=== PATIENT | male | born 1985 | race Two or more races ===

== ENCOUNTER 2016-12-06 10:09 | Emergency (ER) | payer MEDICAID ==
[~2016-12-06] VITALS: Ht 167.6 cm; Wt 77.1 kg
[2016-12-06 10:21] VITALS: BP 132/80
[2016-12-06] MEDS ORDERED: NKM (10:41)
--- NOTE | 2016-12-06 11:29 | Emergency Room Report ---
History of Present Illness General Chief Complaint: Skin Rash/Abscess Source: Patient Present Illness HPI This patient states that he notes some dry skin patches as on his chest. He states that he has noticed over the past 6 months. He states that lately it has become worse. Denies fever or chills. Denies nausea or vomiting. He has no other symptoms. Allergies: Coded Allergies: No Known Allergies (Unverified , 12/06/16) Patient History Past Medical History: none Past Surgical History: none Reviewed Nursing Documentation: PMH: Agreed, PSxH: Agreed Nursing Documentation-PMH Past Medical History: No Stated History Review of Systems All Other Systems: negative except mentioned in HPI Physical Exam Vital Signs Date Time Temp Pulse Resp B/P Pulse Ox O2 Delivery O2 Flow Rate FiO2 12/06/16 10:21 97.5 68 18 132/80 98 Room Air Sp02 EP Interpretation: reviewed, normal General Appearance: no apparent distress, alert, GCS 15, non-toxic Head: normocephalic, atraumatic Eyes: bilateral eye PERRL, bilateral eye normal inspection ENT: hearing grossly normal, normal pharynx, no angioedema, normal voice Neck: full range of motion, supple/symm/no masses Respiratory: no respiratory distress, no retraction, no accessory muscle use, speaking full sentences Rectal: deferred Musculoskeletal: back normal, gait/station normal, normal range of motion Neurologic: alert, oriented x3, responsive, motor strength/tone normal, sensory intact, speech normal Psychiatric: judgement/insight normal, memory normal, mood/affect normal, no suicidal/homicidal ideation Skin: warm/dry, well hydrated, other - scattered dry patchy rash diffusely on chest and back. Medical Decision Making Diagnostic Impression: Primary Impression: Tinea versicolor Additional Impression: Rash and nonspecific skin eruption ER Course This patient presents with a rash that appears to be consistent with tinea versicolor. It is dry and scaly in the distribution of tinea versicolor. Regardless, this is not an emergency medical condition. There are no red flags on exam that would make me concerned for an underlying systemic illness. The patient was instructed to obtain the Selsun Blue or head and shoulders shampoo and use this with bleeding. 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 Given return precautions and followup instructions. No emergency medical condition is identified. Last Vital Signs Date Time Temp Pulse Resp B/P Pulse Ox O2 Delivery O2 Flow Rate FiO2 12/06/16 10:21 97.5 68 18 132/80 98 Room Air Disposition: HOME, SELF-CARE Condition: Stable Referrals: [facility],REFERRING (PCP) ELE MCDOWELL D.O. Dec 06, 2016 11:29
[2016-12-06 11:45] VITALS: BP 132/80
== END 2016-12-06 11:45 | disposition home or self-care (01) ==
LOC: EMR 10:55
DX: B36.0 Pityriasis versicolor (principal); R21 Rash and other nonspecific skin eruption
CPT/HCPCS: 99282

== ENCOUNTER 2017-09-17 11:10 | Emergency (ER) | payer MEDICAID ==
[~2017-09-17] VITALS: Ht 167.6 cm; Wt 74.8 kg
[~2017-09-17 11:10] MED LIST: NKM
[2017-09-17 11:17] VITALS: BP 112/76
[2017-09-17] MEDS ORDERED: GENTAMICIN SUL3.5 GM OP (11:33)
[2017-09-17] MEDS ORDERED: IBUPROFEN600 MG ORAL (11:33)
[2017-09-17] MEDS ORDERED: AUGMENTIN 875-1 EAC1 ORAL (11:33)
[2017-09-17 11:42] VITALS: BP 118/71
--- NOTE | 2017-09-17 13:18 | Emergency Room Report ---
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 Does not recall any obvious foreign body Denies any trauma The area has slowly become worse increased discharge specifically in the morning time Does not feel that there is any change in his vision Allergies: Coded Allergies: No Known Allergies (Unverified , 12/06/16) Patient History Past Medical History: see triage record Pertinent Family History: none Reviewed Nursing Documentation: PMH: Agreed; PSxH: Agreed Nursing Documentation-PMH Past Medical History: No Stated History Review of Systems All Other Systems: negative except mentioned in HPI Physical Exam Vital Signs Date Time Temp Pulse Resp B/P (MAP) Pulse Ox O2 Delivery O2 Flow Rate FiO2 09/17/17 11:15 98.2 90 20 112/76 99 Room Air 98.2 Sp02 EP Interpretation: reviewed, normal General Appearance: well appearing, no apparent distress Head: normocephalic, atraumatic Eyes: right eye other - Right eye conjunctivitis bilateral eyelids are also mildly edematous there is clear discharge noted, no obvious foreign body after evaluation under both eyelids, ENT: normal pharynx, no angioedema Neck: supple Respiratory: lungs clear Cardiovascular #1: regular rate, rhythm Musculoskeletal: normal inspection Neurologic: alert, oriented x3, responsive Skin: no rash Lymphatic: no adenopathy Medical Decision Making Diagnostic Impression: Primary Impression: conjunctivitis ER Course Patient shows clinical signs of right-sided bacterial conjunctivitis Given the edema to the upper and lower eyelid early cellulitis is also considered Patient placed on oral antibiotics as well as eye drops and requires close follow-up Last Vital Signs Date Time Temp Pulse Resp B/P (MAP) Pulse Ox O2 Delivery O2 Flow Rate FiO2 09/17/17 11:42 98.2 84 18 118/71 99 Room Air 98.2 Status: unchanged Disposition: HOME, SELF-CARE Condition: Stable Scripts Amoxicillin/Potassium Clav 875-125* (AUGMENTIN 875-125 TABLET*) 1 Each Tablet 1 TAB ORAL TWICE A DAY, #14 TAB Prov: Av Hernandez DO 09/17/17 Gentamicin Sulfate* (GENTAMICIN SULFATE*) 3.5 Gm Oint...g. 3.5 GM OP TID for 7 Days, GM Prov: Av Hernandez DO 09/17/17 Ibuprofen* (MOTRIN*) 600 Mg Tablet 600 MG ORAL Q8H PRN for For Pain, #20 TAB 0 Refills Prov: Av Hernandez DO 09/17/17 Referrals: NOT CHOSEN [facility]/MD,REFERRING Patient Instructions: Bacterial Conjunctivitis Additional Instructions: Patient is provided with the discharge instructions notified to follow up with primary doctor in the next 2-3 days otherwise return to the er with any worsening symptoms. Please note that this report is being documented using [employer] technology. This can lead to erroneous entry secondary to incorrect interpretation by the dictating instrument. Av Hernandez DO September 17, 2017 13:18
== END 2017-09-17 11:42 | disposition home or self-care (01) ==
LOC: EMR 11:32
DX: H10.9 Unspecified conjunctivitis (principal)
CPT/HCPCS: 99284

== ENCOUNTER 2017-10-10 16:45 | Emergency (ER) | payer MEDICAID ==
[~2017-10-10] VITALS: Ht 167.6 cm; Wt 72.6 kg
[~2017-10-10 16:45] MED LIST changes: +AUGMENTIN 875-1 EAC1 ORAL; +GENTAMICIN SUL3.5 GM OP; +IBUPROFEN600 MG ORAL
[2017-10-10 17:06] VITALS: BP 123/79
--- NOTE | 2017-10-10 17:29 | Emergency Room Report ---
History of Present Illness General Chief Complaint: Vomiting Source: Patient Present Illness HPI 32-year-old male with no medical problems presents with nausea and vomiting yellowish gastric acid t twice since yesterday, lightheaded and dizzy sensation as well. He reports he can't think of any obvious triggers he reports he has no pain complaints other than a low-grade headache, he denies fevers, denies bowel pain, denies urinary symptoms, denies diarrhea, denies skin rashes, denies recent travel, denies any medication or drug used, and has no other symptoms at all. Allergies: Coded Allergies: No Known Allergies (Unverified , 12/06/16) Patient History Past Medical History: see triage record Reviewed Nursing Documentation: PMH: Agreed; PSxH: Agreed Nursing Documentation-PMH Past Medical History: No Stated History Review of Systems All Other Systems: negative except mentioned in HPI Physical Exam Vital Signs Date Time Temp Pulse Resp B/P (MAP) Pulse Ox O2 Delivery O2 Flow Rate FiO2 10/10/17 16:49 97.8 72 18 123/79 96 Room Air 97.9 Sp02 EP Interpretation: reviewed, normal General Appearance: no apparent distress, alert, non-toxic Head: normocephalic Eyes: bilateral eye normal inspection, bilateral eye PERRL, bilateral eye EOMI ENT: normal ENT inspection, hearing grossly normal, normal pharynx, no angioedema, normal voice, moist mucus membranes Neck: normal inspection, full range of motion, supple, thyroid normal, no meningismus, supple/symm/no masses Respiratory: chest non-tender, lungs clear, normal breath sounds, chest symmetrical, palpation of chest normal Cardiovascular #1: normal peripheral pulses, regular rate, rhythm, no edema, no gallop, no JVD, no murmur, no rub Cardiovascular #2: 2+ radial (R), 2+ radial (L) Gastrointestinal: normal inspection, non tender, soft, no mass, no guarding, no rebound Rectal: deferred Genitourinary: normal inspection, no CVA tenderness Musculoskeletal: back normal, gait/station normal, normal range of motion, non- tender, no calf tenderness Neurologic: normal inspection, alert, oriented x3, responsive, collet gluer III-XII nml as tested, motor strength/tone normal, sensory intact, cerebellar normal, normal gait, speech normal Psychiatric: judgement/insight normal, memory normal, mood/affect normal, no suicidal/homicidal ideation Skin: normal color, no rash, warm/dry, normal turgor Lymphatic: no adenopathy Medical Decision Making Diagnostic Impression: Primary Impression: Vomiting ER Course Patient with nonspecific nausea vomiting lightheadedness, but has a normal examination today. No high risk features, no nystagmus, completely normal examination today as mentioned, possible food poisoning, tolerated a GI cocktail , recommend [id number] measures and reassurance. Labs normal, other than slight cr elvation 1.4. Instructions return for pain severe dizziness persistent vomiting any other symptoms, otherwise f/u with PMD. Last Vital Signs Date Time Temp Pulse Resp B/P (MAP) Pulse Ox O2 Delivery O2 Flow Rate FiO2 10/10/17 17:06 97.9 84 18 123/79 96 Room Air 97.9 Disposition: HOME, SELF-CARE Condition: Stable RAYMON MCKEON M.D Oct 10, 2017 17:29
[2017-10-10] MEDS ORDERED: Mylanta II UD 30ml ORAL ONE (17:30)
[2017-10-10 17:55] LABS: EOSINOPHILS % (AUTO) 1.2 % (0.0-3.0); LYMPHOCYTES % (AUTO) 31.5 % (20.0-45.0); MEAN CORPUSCULAR VOLUME 91 FL (80-99); NEUTROPHILS % (AUTO) 57.3 % (45.0-75.0); PLATELET COUNT 172 K/UL (150-450); RED BLOOD COUNT 4.59 M/UL (4.70-6.10); RED CELL DISTRIBUTION WIDTH 11.2 % (11.6-14.8); WHITE BLOOD COUNT 5.3 K/UL (4.8-10.8)
[2017-10-10 18:08] LABS: ANION GAP 6 mmol/L (5-15); BLOOD UREA NITROGEN 13 mg/dL (7-18); CALCIUM 9.5 MG/DL (8.5-10.1); CARBON DIOXIDE 30 MMOL/L (21-32); CHLORIDE 103 MMOL/L (98-107); CREATININE 1.4 MG/DL (0.55-1.30); POTASSIUM 3.9 MMOL/L (3.5-5.1); SODIUM 139 MMOL/L (136-145)
[2017-10-10 18:11] LABS: ALANINE AMINOTRANSFERASE 32 U/L (12-78); ALBUMIN 4.3 G/DL (3.4-5.0); ALBUMIN/GLOBULIN RATIO 1.1 (1.0-2.7); ALKALINE PHOSPHATASE 63 U/L (46-116); ASPARTATE AMINO TRANSFERASE 21 U/L (15-37); BILIRUBIN,TOTAL 0.7 MG/DL (0.2-1.0)
[2017-10-10] MEDS ORDERED: RANITIDINE HCL150 MG ORAL (19:28)
[2017-10-10 19:30] VITALS: BP 122/72
== END 2017-10-10 19:30 | disposition home or self-care (01) ==
LOC: EMR 17:50
DX: R11.2 Nausea with vomiting, unspecified (principal); R42 Dizziness and giddiness
CPT/HCPCS: 36415; 80053; 83690; 85025; 99283

== ENCOUNTER 2018-04-09 08:25 | Emergency (ER) | payer MEDICAID ==
[~2018-04-09] VITALS: Ht 167.6 cm; Wt 75.3 kg
[~2018-04-09 08:25] MED LIST changes: +RANITIDINE HCL150 MG ORAL
[2018-04-09] MEDS ORDERED: AUGMENTIN 875-1 EAC1 ORAL (09:15)
[2018-04-09] MEDS ORDERED: IBUPROFEN600 MG ORAL (09:15)
--- NOTE | 2018-04-09 09:23 | Emergency Room Report ---
History of Present Illness General Chief Complaint: Flu Like Symptoms Source: Patient Present Illness HPI Patient presents with complaints of sore throat over the past 4 days Bodyaches and chills patient also reported mild cough Was having midsternal discomfort with the cough Denies any shortness of breath denies any posterior neck pain Denies any headache denies any recent travel Denies any rash Allergies: Coded Allergies: No Known Allergies (Unverified , 12/06/16) Patient History Past Medical History: see triage record Pertinent Family History: none Reviewed Nursing Documentation: PMH: Agreed; PSxH: Agreed Nursing Documentation-PMH Past Medical History: No Stated History Review of Systems All Other Systems: negative except mentioned in HPI Physical Exam Vital Signs Date Time Temp Pulse Resp B/P (MAP) Pulse Ox O2 Delivery O2 Flow Rate FiO2 04/09/18 08:32 97.9 71 19 127/93 96 Room Air Sp02 EP Interpretation: reviewed, normal General Appearance: well appearing, no apparent distress Head: normocephalic, atraumatic Eyes: bilateral eye PERRL, bilateral eye EOMI ENT: hearing grossly normal, TMs + canals normal, uvula midline, pharyngeal erythema Neck: full range of motion, supple, no meningismus, no bony tend Respiratory: lungs clear, normal breath sounds, no rhonchi, no respiratory distress, no retraction, no accessory muscle use Cardiovascular #1: normal peripheral pulses, regular rate, rhythm, no edema, no gallop, no JVD, no murmur Gastrointestinal: normal bowel sounds, non tender, soft, no mass, no organomegaly, non-distended, no guarding, no hernia, no pulsatile mass, no rebound Musculoskeletal: normal inspection Neurologic: oriented x3, responsive, upsetter setter up III-XII nml as tested, motor strength/ tone normal, sensory intact Psychiatric: mood/affect normal Skin: normal color, no rash, warm/dry, palpation normal Lymphatic: normal inspection, no adenopathy Medical Decision Making Diagnostic Impression: Primary Impression: pharyngitis Additional Impression: Influenza-like symptoms ER Course Clinical history and exam is consistent with pharyngitis There is a component of flulike symptoms as well Given the duration of symptoms and the patient's discomfort he was placed on antibiotics Patient otherwise does not appear septic or toxic and is stable for close outpatient follow-up He also reported that his family member recently with pneumonia and he was exposed to her At this time the lung sounds are clear patient is saturating well There is no evidence of respiratory discomfort And patient will return if symptoms are not improving Last Vital Signs Date Time Temp Pulse Resp B/P (MAP) Pulse Ox O2 Delivery O2 Flow Rate FiO2 04/09/18 08:39 71 19 Room Air 04/09/18 08:32 97.9 127/93 96 Status: unchanged Disposition: HOME, SELF-CARE Condition: Stable Scripts Amoxicillin/Potassium Clav 875-125* (AUGMENTIN 875-125 TABLET*) 1 Each Tablet 1 TAB ORAL TWICE A DAY, #14 TAB Prov: Av Hernandez DO 04/09/18 Ibuprofen* (MOTRIN*) 600 Mg Tablet 600 MG ORAL Q8H PRN for For Pain, #20 TAB 0 Refills Prov: Av Hernandez DO 04/09/18 Referrals: [facility],REFERRING (PCP) Patient Instructions: Influenza, Adult, [id number], Pharyngitis, [id number] Additional Instructions: Patient is provided with the discharge instructions notified to follow up with primary doctor in the next 2-3 days otherwise return to the er with any worsening symptoms. Please note that this report is being documented using [employer] technology. This can lead to erroneous entry secondary to incorrect interpretation by the dictating instrument. vA Hernandez DO Apr 09, 2018 09:23
[2018-04-09 09:24] VITALS: BP 119/84
[2018-04-09 09:25] VITALS: BP 127/93
== END 2018-04-09 09:25 | disposition home or self-care (01) ==
LOC: EMR 08:35
DX: J02.9 Acute pharyngitis, unspecified (principal); M79.10 Myalgia, unspecified site
CPT/HCPCS: 99283

== ENCOUNTER 2018-05-13 12:41 | Emergency (ER) | payer MEDICAID ==
[~2018-05-13] VITALS: Ht 167.6 cm; Wt 77.1 kg
[2018-05-13 12:50] VITALS: BP 124/71
--- NOTE | 2018-05-13 12:50 | NUR ---
ED Nurse Note: Pt AAO x4 present at ER c/o 11/08 CLEESTIN started at work from yesterday. VSS, remaining calm and cooperative with initial assessment.
[2018-05-13] MEDS ORDERED: LORazepam 1mg tab ORAL ONE (13:15)
--- NOTE | 2018-05-13 13:30 | Emergency Room Report ---
History of Present Illness General Chief Complaint: Headache Source: Patient Present Illness HPI 32-year-old male presents to the emergency department complaining of sudden onset of sweating, feeling faint and having palpitations while at work. Patient reports that he has been having a lot of stress at work and not getting along with coworkers. Patient states that this occurred his coworkers were talking about him in front of him. Patient reports that he began feeling very angry and thinks that because he bottled of his emotions this may have happened. Pt also reports 8/10 in severity throbbing CELESTIN on the right side of his head. Denies recent head injury, visual changes or changes to his hearing. Patient denies history of anxiety or panic attacks. He denies significant past medical history and states that he is otherwise healthy. Denies syncope or chest pain. Patient denies shortness of breath or paresthesias. Pt. denies sudden onset of his headache. Allergies: Coded Allergies: No Known Allergies (Unverified , 05/13/18) Patient History Past Medical History: see triage record Past Surgical History: none Pertinent Family History: none Reviewed Nursing Documentation: PMH: Agreed; PSxH: Agreed Nursing Documentation-PMH Past Medical History: No Stated History Review of Systems All Other Systems: negative except mentioned in HPI Physical Exam Vital Signs Date Time Temp Pulse Resp B/P (MAP) Pulse Ox O2 Delivery O2 Flow Rate FiO2 05/13/18 12:47 98.1 65 16 120/68 98 Room Air Sp02 EP Interpretation: reviewed, normal General Appearance: no apparent distress, alert, GCS 15, non-toxic Head: normocephalic, atraumatic Eyes: bilateral eye normal inspection, bilateral eye PERRL ENT: hearing grossly normal, normal voice Neck: full range of motion Respiratory: chest non-tender, lungs clear, normal breath sounds, speaking full sentences Cardiovascular #1: regular rate, rhythm, no edema Gastrointestinal: normal bowel sounds, non tender, soft Rectal: deferred Genitourinary: normal inspection Musculoskeletal: back normal, gait/station normal, normal range of motion, non- tender Neurologic: alert, oriented x3, responsive, motor strength/tone normal, sensory intact, speech normal, grossly normal Psychiatric: judgement/insight normal Skin: normal color, no rash, warm/dry, well hydrated Lymphatic: no adenopathy Medical Decision Making PA Attestation Dr. Zepeda is my supervising Physician whom patient management has been discussed with. Diagnostic Impression: Primary Impression: Headache Qualified Codes: R51 - Headache Additional Impression: Anxiety reaction ER Course 32-year-old male presents to the emergency department complaining of sudden onset of sweating, feeling faint and having palpitations while at work. Patient reports that he has been having a lot of stress at work and not getting along with coworkers. Patient states that this occurred his coworkers were talking about him in front of him. Patient reports that he began feeling very angry and thinks that because he bottled of his emotions this may have happened. Pt also reports 8/10 in severity throbbing CELESTIN on the right side of his head. Denies recent head injury, visual changes or changes to his hearing. Patient denies history of anxiety or panic attacks. He denies significant past medical history and states that he is otherwise healthy. Denies syncope or chest pain. Patient denies shortness of breath or paresthesias. Pt. denies sudden onset of his headache. Ddx considered but are not limited to anxiety, [place], PE, asthma, thyroid storm, hyperthyroid, EPS Vital signs: are WNL, pt. is afebrile H&PE are most consistent with anxiety attack - EKG: Unremarkable -CT Head No Contrast: Unremarkable - Bedside US: no evidence of Pericardial effusion/pericarditis. ED INTERVENTIONS: - 1mg Ativan -I do not identify an emergent condition at this time. With current presentation , pt. is stable for close outpatient follow up and conservative treatment. D/ w pt. to return promptly to ED with worsening or new symptoms.- Pt. verbalizes' understanding and agreement with proposed treatment plan. D/w pt. the importance of prompt Neurology Follow up. DISCHARGE: At this time pt. is stable for d/c to home. Will provide printed patient care instructions, and any necessary prescriptions. Care plan and follow up instructions have been discussed with the patient prior to discharge. EKG Diagnostic Results EP Interpretation: Dr. Zepeda Rate: normal - 63 bpm Rhythm: NSR - [address] Segments: no acute changes ASA given to the pt in ED: No PA Scribe Text This Interpretation was scribed by ALMA ROSA Robles. CT/MRI/US Diagnostic Results CT/MRI/US Diagnostic Results : Imaging Test Ordered: CT Head No Contrast Impression " No evidence of acute fracture, hemorrhage, or intracranial process" --Per official radiology report- Please see report for specific details. Last Vital Signs Date Time Temp Pulse Resp B/P (MAP) Pulse Ox O2 Delivery O2 Flow Rate FiO2 05/13/18 12:50 98.1 91 16 124/71 98 Room Air Disposition: HOME, SELF-CARE Condition: Stable Scripts Aspirin/Acetaminophen/Caffeine (EXCEDRIN MIGRAINE GELTAB) 1 Each Tablet 1 EACH PO Q6HR, #30 TAB Prov: Ronna Robles 05/13/18 Lorazepam* (ATIVAN*) 0.5 Mg Tablet 0.5 MG ORAL THREE TIMES A DAY, #5 TAB Prov: Ronna Robles 05/13/18 Departure Forms: Return to Work Return to Work Date: May 16, 2018 Work Restrictions: None Other Restrictions: May return Sooner if Symptoms have resolved. Return to Full Activity: May 16, 2018 Patient Instructions: Cluster Headache, Panic Attacks, [id number] Additional Instructions: Take medications as directed. Follow up with a Primary Care Provider in 3-5 days, even if your symptoms have resolved. --Please review list of primary care clinics, if you do not already have a primary care provider Return sooner to ED if new symptoms occur, or current symptoms become worse. - Please note that this Emergency Department Report was dictated using [employer] technology software, occasionally this can lead to erroneous entry secondary to interpretation by the dictation equipment. Ronna Robles May 13, 2018 13:30
--- NOTE | 2018-05-13 15:30 | Diagnostic Imaging Report ---
EXAM: CT Head Without Intravenous Contrast CLINICAL HISTORY: PAIN TECHNIQUE: Axial computed tomography images of the head/brain without intravenous contrast. CTDI is 70 mGy and DLP is 1351 mGy-cm. One or more of the following dose reduction techniques were used: automated exposure control, adjustment of the mA and/or kV according to patient size, use of iterative reconstruction technique. COMPARISON: No relevant prior studies available. FINDINGS: Brain: Unremarkable. No evidence of acute intracranial hemorrhage. No significant white matter disease. No edema. No mass effect or midline shift. Ventricles: Unremarkable. No ventriculomegaly. Bones/joints: Unremarkable. No depressed skull fracture. Soft tissues: Unremarkable. Sinuses: Unremarkable as visualized. No acute sinusitis. Mastoid air cells: Unremarkable as visualized. No mastoid effusion. IMPRESSION: Unremarkable noncontrast CT of the head/brain.
[2018-05-13] MEDS ORDERED: ATIVAN0.5 MG ORAL (15:48)
[2018-05-13] MEDS ORDERED: EXCEDRIN MIGRA1 EACH PO (15:48)
[2018-05-13 15:56] VITALS: BP 130/79
--- NOTE | 2018-05-13 15:58 | NUR ---
ED Nurse Note: Pt was cleared to be discharged by ERPA. VSS, discharge instruction, prescription, work off paper were provided with fully understanding. Pt ambulated in stable condition to be discharged. ID band removed.
--- NOTE | 2018-05-14 15:26 | Cardiology Report ---
APPROVED REPORT EKG Measurement Heart [id number] Sinus rhythm with 1st degree AV block Possible Acute pericarditis Abnormal ECG
== END 2018-05-13 16:00 | disposition home or self-care (01) ==
LOC: EMR 13:59
DX: R51 Headache (principal); F41.9 Anxiety disorder, unspecified
CPT/HCPCS: 70450; 93005; 99284

== ENCOUNTER 2018-08-27 13:00 | Emergency (ER) | payer MEDICAID ==
[~2018-08-27] VITALS: Ht 167.6 cm; Wt 72.6 kg
[~2018-08-27 13:00] MED LIST changes: +ATIVAN0.5 MG ORAL; +EXCEDRIN MIGRA1 EACH PO
[2018-08-27] MEDS ORDERED: NKM (13:07)
--- NOTE | 2018-08-27 13:15 | Emergency Room Report ---
History of Present Illness General Chief Complaint: Upper Respiratory Illness Source: Patient Present Illness HPI 33-year-old male with no significant past medical history here complaining of 1 week of sore throat and congestion and 2 days of dry cough worsening at night. Patient denies excessive rhinorrhea, fever chills, abdominal pain nausea vomiting, shortness of breath, palpitation, chest pain. He reports his sore throat is improving however his cough is his main concern denies smoking. Been taking Mucinex for cough and congestion with minimal relief. He reports his congestion is making him dizzy at times. Denies all other associated symptoms Allergies: Coded Allergies: No Known Allergies (Unverified , 05/13/18) Patient History Past Medical History: see triage record Past Surgical History: unable to obtain Pertinent Family History: none Immunizations: UTD Reviewed Nursing Documentation: PMH: Agreed; PSxH: Agreed Nursing Documentation-PMH Past Medical History: No Stated History Review of Systems All Other Systems: negative except mentioned in HPI Physical Exam Vital Signs Date Time Temp Pulse Resp B/P (MAP) Pulse Ox O2 Delivery O2 Flow Rate FiO2 08/27/18 13:05 98.2 77 18 117/71 97 Room Air Sp02 EP Interpretation: reviewed, normal General Appearance: normal inspection, well appearing, no apparent distress Head: normocephalic, atraumatic Eyes: bilateral eye normal inspection, bilateral eye PERRL ENT: TMs + canals normal, uvula midline, moist mucus membranes, pharyngeal erythema, other - frontal sinuses ttp Neck: normal inspection, full range of motion, supple Respiratory: normal inspection, chest non-tender, lungs clear, normal breath sounds, no rhonchi, no wheezing Cardiovascular #1: normal inspection, normal peripheral pulses, regular rate, rhythm, no murmur Gastrointestinal: normal inspection, non tender, soft Musculoskeletal: normal inspection, back normal Neurologic: normal inspection, alert, oriented x3 Psychiatric: normal inspection, judgement/insight normal Skin: normal inspection, normal color, no rash Lymphatic: normal inspection, no adenopathy Medical Decision Making PA Attestation All my diagnosis and treatment plans were reviewed ad discussed with my supervising physician Dr. Richey Diagnostic Impression: Primary Impression: Sinusitis ER Course 33-year-old male with no significant past medical history here complaining of 1 week of sore throat and congestion and 2 days of dry cough worsening at night. Patient denies excessive rhinorrhea, fever chills, abdominal pain nausea vomiting, shortness of breath, palpitation, chest pain. He reports his sore throat is improving however his cough is his main concern denies smoking. Been taking Mucinex for cough and congestion with minimal relief. He reports his congestion is making him dizzy at times. Denies all other associated symptoms Ddx considered but are not limited to: URI, sinusitis, bronchitis, strep pharyngitis Vital signs: are WNL, pt. is afebrile H&PE are most consistent with sinusitis ORDERS: azithromycin, tesseremedios pearls ED INTERVENTIONS: None required at this time. DISCHARGE: At this time pt. is stable for d/c to home. Will provide printed patient care instructions, and any necessary prescriptions. Care plan and follow up instructions have been discussed with the patient prior to discharge. Continue with Mucinex for symptom relief follow-up with the primary care provider Last Vital Signs Date Time Temp Pulse Resp B/P (MAP) Pulse Ox O2 Delivery O2 Flow Rate FiO2 08/27/18 13:05 98.2 77 18 117/71 97 Room Air Disposition: HOME, SELF-CARE Condition: Stable Scripts Benzonatate* (TESSALON PERLE*) 100 Mg Capsule 100 MG ORAL THREE TIMES A DAY, #21 PERLE Prov: Jeramy Hyatt 08/27/18 Azithromycin* (ZITHROMAX*) 250 Mg Tablet 250 MG ORAL DAILY, #6 TAB 0 Refills Take two tables once daily for 1 day, then one tablet once daily for 4 days. Prov: Jeramy Hyatt 08/27/18 Patient Instructions: Sinusitis, Adult, [id number] Additional Instructions: follow up with primary Jeramy Bell Aug 27, 2018 13:15
[2018-08-27] MEDS ORDERED: TESSALON PERLE100 MG ORAL (13:16)
[2018-08-27] MEDS ORDERED: ZITHROMAX250 MG ORAL (13:16)
[2018-08-27 13:22] VITALS: BP 117/71
--- NOTE | 2018-08-27 13:24 | NUR ---
ER DISCHARGE NOTE: Patient is cleared to be discharged per ERMD, pt is aox4, on room air, with stable vital signs. pt was given dc and prescription instructions, pt was able to verbalize understanding, pt is able to ambulate with steady gait. pt took all belongings.
[2018-08-27 13:25] VITALS: BP 117/71
== END 2018-08-27 13:30 | disposition home or self-care (01) ==
LOC: EMR 13:14
DX: J32.9 Chronic sinusitis, unspecified (principal)
CPT/HCPCS: 99282

== ENCOUNTER 2019-01-20 22:00 | Emergency (ER) | payer MEDICAID ==
[~2019-01-20] VITALS: Ht 167.6 cm; Wt 77.1 kg
[~2019-01-20 22:00] MED LIST changes: +TESSALON PERLE100 MG ORAL; +ZITHROMAX250 MG ORAL
[2019-01-20 22:05] VITALS: BP 128/86
--- NOTE | 2019-01-20 22:05 | NUR ---
ED Nurse Note: PT AMBULATED TO ED FROM HOME C/O RIGHT ARM ACHING AND RIGHT FOOT PAIN X 2 DAYS AGO. PT DENIES TRAUAM TO AREA.
--- NOTE | 2019-01-20 22:06 | NUR ---
ED Nurse Note: RIGHT SHOULDER AND RIGHT FOOT CLEAN DRY AND INTACT, NO VISIBLE DEFORMITIES, PT ABLE TO PERFORM FULL RANGE OF MOTION OF THE RIGHT SHOULDER AND RIGHT FOOT.
--- NOTE | 2019-01-20 22:30 | NUR ---
ED Nurse Note: XRAY AT BEDSIDE
--- NOTE | 2019-01-20 22:30 | Emergency Room Report ---
History of Present Illness General Chief Complaint: Pain Source: Patient Present Illness HPI Is a 33-year-old male with no past medical history. He presents with chief complaint of right ankle and right elbow pain. Onset for last 2 days. Initially started in his right ankle. Mostly in the lateral aspect. He said he is limping at work. He has no trauma. No heavy lifting. And today his right elbow started hurting. He felt achiness. Woke up with this. No nausea no vomiting. No fever chills but denies any other complaint. Allergies: Coded Allergies: No Known Allergies (Unverified , 05/13/18) Patient History Past Medical History: see triage record, old chart reviewed Past Surgical History: none Pertinent Family History: none Social History: Denies: smoking Immunizations: other Reviewed Nursing Documentation: PMH: Agreed; PSxH: Agreed Nursing Documentation-PMH Past Medical History: No Stated History Review of Systems Eye: Denies: eye pain, blurred vision ENT: Denies: ear pain, nose congestion, throat swelling Respiratory: Denies: cough, shortness of breath Cardiovascular: Denies: chest pain, palpitations Gastrointestinal: Denies: abdominal pain, diarrhea, nausea, vomiting Musculoskeletal: Reports: joint pain; Denies: back pain Skin: Denies: rash Neurological: Denies: headache, numbness Endocrine: Denies: increased thirst, increased urine Hematologic/Lymphatic: Denies: easy bruising All Other Systems: negative except mentioned in HPI Physical Exam Vital Signs Date Time Temp Pulse Resp B/P (MAP) Pulse Ox O2 Delivery O2 Flow Rate FiO2 01/20/19 22:03 97.9 62 16 128/86 (100) 95 Room Air Vitals normal Sp02 EP Interpretation: reviewed, normal General Appearance: well appearing, no apparent distress, alert Head: normocephalic, atraumatic Eyes: bilateral eye PERRL, bilateral eye EOMI ENT: hearing grossly normal, normal pharynx Neck: full range of motion, supple, no meningismus Respiratory: chest non-tender, lungs clear, normal breath sounds Cardiovascular #1: regular rate, rhythm, no murmur Gastrointestinal: normal bowel sounds, non tender, no mass, no organomegaly, no bruit, non-distended Musculoskeletal: back normal, gait/station normal, normal range of motion, other - Elbow with full range of motion. Tenderness to the lateral aspect of the elbow. Right ankle with tenderness to the lateral aspect and posterior to the lateral malleolus. Full range of motion. Psychiatric: mood/affect normal Medical Decision Making Diagnostic Impression: Primary Impression: Arthralgia of right elbow Additional Impression: Arthralgia of right ankle ER Course Presents with pain to the right elbow and ankle area. No evidence of fracture dislocation. No evidence of any septic joint. No trauma. Will discharge home. Other X-Ray Diagnostic Results Other X-Ray Diagnostic Results #1: X-Ray ordered: XR right ankle # of Views/Limited Vs Complete: 3 View Indication: Pain EP Interpretation: Yes Interpretation: no dislocation, no soft tissue swelling, no fractures Impression: No acute disease Electronically Signed by: Kanu Caraballo MD Other X-Ray Diagnostic Results #2: X-Ray ordered: Right elbow x-rays # of Views/Limited Vs Complete: 4 View Indication: Pain EP Interpretation: Yes Interpretation: no dislocation, no soft tissue swelling, no fractures Impression: No acute disease Electronically Signed by: Kanu Caraballo MD Last Vital Signs Date Time Temp Pulse Resp B/P (MAP) Pulse Ox O2 Delivery O2 Flow Rate FiO2 01/20/19 22:05 97.9 62 16 128/86 95 Room Air Status: improved Disposition: HOME, SELF-CARE Condition: Stable Scripts Ibuprofen* (MOTRIN*) 600 Mg Tablet 600 MG ORAL THREE TIMES A DAY, #30 TAB 0 Refills Prov: Kanu Caraballo MD 01/20/19 Additional Instructions: Elevate leg. Follow-up with your doctor in 7 days. Return if worse. Kanu Caraballo MD Jan 20, 2019 22:30
[2019-01-20] MEDS ORDERED: IBUPROFEN600 MG ORAL (22:53)
[2019-01-20 22:57] VITALS: BP 126/80
--- NOTE | 2019-01-20 22:57 | NUR ---
ED Nurse Note: pt cleared to be d/c per ermd, pt discharge and aftercare instruction provided w prescription, pt education done via discussion and handout, pt advised to follow up with pcp or return to ed if changes in condition, vss, ambulatory w/ steady gait, left w/ all belongings.
--- NOTE | 2019-01-20 23:00 | Diagnostic Imaging Report ---
EXAM: XR Right Ankle Complete, 3 or More Views CLINICAL HISTORY: PAIN TECHNIQUE: Frontal, lateral and oblique views of the right ankle. COMPARISON: No relevant prior studies available. FINDINGS: Bones joints: Tiny probably remote avulsion fracture at the tip of the medial malleolus. Otherwise normal bones and soft tissues. No dislocation. Soft tissues: See above. IMPRESSION: 1. No clear acute abnormality seen. 2. Tiny probably remote avulsion fracture at the tip of the medial malleolus.
--- NOTE | 2019-01-20 23:03 | Diagnostic Imaging Report ---
EXAM: XR Right Elbow Complete, 3 or More Views CLINICAL HISTORY: PAIN TECHNIQUE: Frontal, lateral and oblique views of the right elbow. COMPARISON: No relevant prior studies available. FINDINGS: Limitations: Study somewhat limited due to suboptimal lateral projection imaging. Bones joints: Mild irregularity at the coronoid process of the ulna could represent a fracture of uncertain chronicity. No significant displacement. Minimally prominent anterior fat pad on nonstandard lateral radiograph could represent an elbow joint effusion. No dislocation. Soft tissues: Unremarkable. IMPRESSION: 1. Study somewhat limited due to suboptimal lateral projection imaging. 2. Mild irregularity at the coronoid process of the ulna could represent a fracture of uncertain chronicity. No significant displacement. 3. Minimally prominent anterior fat pad on nonstandard lateral radiograph could represent an elbow joint effusion. 4. If there is continued concern or clinical ambiguity, recommend repeating lateral radiograph, cross-sectional imaging, or follow-up radiographs in 7-10 days.
== END 2019-01-20 22:57 | disposition home or self-care (01) ==
LOC: EMR 22:11
DX: M25.571 Pain in right ankle and joints of right foot (principal); M25.521 Pain in right elbow
CPT/HCPCS: 73080; 73610; Z7502; 99284

== ENCOUNTER 2019-03-20 16:53 | Emergency (ER) | payer MEDICAID ==
[~2019-03-20] VITALS: Ht 167.6 cm; Wt 72.6 kg
[2019-03-20 17:09] VITALS: BP 138/87
--- NOTE | 2019-03-20 17:35 | Emergency Room Report ---
History of Present Illness General Chief Complaint: Head Injury Source: Patient Present Illness HPI 33-year-old male, presents with contusion to the left forehead, patient was hit with a baseball, he had transient LOC for less than a second, no nausea no vomiting patient is felt a little woozy no known aggravating relieving factors severity is mild, symptoms are left forehead pain patient presents for evaluation Allergies: Coded Allergies: No Known Allergies (Unverified , 05/13/18) Patient History Past Medical History: see triage record Reviewed Nursing Documentation: PMH: Agreed; PSxH: Agreed Nursing Documentation-PMH Past Medical History: No Stated History Review of Systems All Other Systems: negative except mentioned in HPI Physical Exam Vital Signs Date Time Temp Pulse Resp B/P (MAP) Pulse Ox O2 Delivery O2 Flow Rate FiO2 03/20/19 17:09 98.2 66 18 138/87 (104) 96 Room Air Sp02 EP Interpretation: reviewed, normal General Appearance: well appearing, no apparent distress, alert Head: normocephalic, other - Left forehead hematoma Eyes: bilateral eye PERRL, bilateral eye EOMI, bilateral eye other - No evidence of entrapment ENT: uvula midline, moist mucus membranes Neck: supple, thyroid normal, supple/symm/no masses Respiratory: lungs clear, no respiratory distress, no retraction, no accessory muscle use Cardiovascular #1: normal peripheral pulses, regular rate, rhythm, no edema, no gallop, no murmur Gastrointestinal: non tender, soft, no guarding, no rebound Musculoskeletal: normal inspection Neurologic: alert, oriented x3 Psychiatric: mood/affect normal Skin: no rash, warm/dry Medical Decision Making Diagnostic Impression: Primary Impression: Closed head injury Qualified Codes: S09.90XA - Unspecified injury of head, initial encounter Additional Impression: Traumatic hematoma of forehead Qualified Codes: S00.83XA - Contusion of other part of head, initial encounter ER Course Patient with closed head injury of head, ddx includes contusion, head bleed. CT head negative CT face negative. Dispo home w/ return precautions CT/MRI/US Diagnostic Results CT/MRI/US Diagnostic Results : Impression Preliminary Findings Only See Final Report For Complete Findings CT FACIAL Without Contrast: No facial bone fracture identified. Globes and orbits are intact. Mild mucosal thickening in the paranasal sinuses. Radiologist: Dharmesh Caicedo MD Study ready at 18:35 and initial results transmitted at 18:40 Preliminary Findings Only See Final Report For Complete Findings CT HEAD Without Contrast: Comparison: 05/13/2018 Left frontal scalp soft tissue swelling, likely posttraumatic. No acute intracranial abnormality. No acute calvarial abnormality. Minimal mucosal thickening in the paranasal sinuses. Radiologist: Dharmesh Caicedo MD Study ready at 18:19 and initial results transmitted at 18:21 Last Vital Signs Date Time Temp Pulse Resp B/P (MAP) Pulse Ox O2 Delivery O2 Flow Rate FiO2 03/20/19 17:09 98.2 66 18 138/87 (104) 96 Room Air Disposition: HOME, SELF-CARE Condition: Stable Referrals: [facility] Patient Instructions: Concussion, Adult, [id number], Head Injury, Adult Additional Instructions: The patient was provided with discharge instructions, notified to follow-up with a primary care doctor and or specialist in the next 24-48 hours, and to return to the ED if they have worsening of their symptoms. Please note that this report is being documented using [employer] technology. This can lead to erroneous entry secondary to incorrect interpretation by the dictating instrument. Ramiro Stack MD Mar 20, 2019 17:35
[2019-03-20] MEDS: Tetanus/Diptheria/Pertussis IM ONE ×2 (18:04→18:59)
--- NOTE | 2019-03-20 18:22 | Diagnostic Imaging Report ---
Indications: Left forehead pain after being struck in the forehead with baseball, altered level of consciousness Technique: Spiral acquisitions obtained through the brain. Angled axial and coronal 5 x 5 mm slices were reconstructed. Total dose length product 1426 mGycm. CTDI vol(s) mGy. Dose reduction achieved using automated exposure control Comparison: 05/13/2018 Findings: There is a left supraorbital scalp soft tissue contusion noted. No acute intercranial hemorrhage or edema. No mass effect nor midline shift. Normal lopez-white differentiation. Normal size ventricles and extra-axial CSF spaces. Intact calvarium. The visualized orbits and sinuses are unremarkable. Impression: Left supraorbital scalp hematoma Negative for acute intracranial bleed or mass effect This agrees with the preliminary interpretation provided overnight by [facility]. The CT scanner at [facility] is accredited by the [employer] and the scans are performed using protocols designed to limit radiation exposure to as low as reasonably achievable to attain images of sufficient resolution adequate for diagnostic evaluation.
--- NOTE | 2019-03-20 18:41 | Diagnostic Imaging Report ---
Indications: Left supraorbital trauma, pain Technique: Spiral images obtained through the facial bones. No IV contrast utilized. Multiplanar reconstructions were generated.Total dose length product for 49 mGycm. CTDIvol(s) 24 mGy. Dose reduction achieved using automated exposure control Comparison: none Findings: No definite acute fractures. Orbital and sinus posada are intact. No worrisome sinus air-fluid levels demonstrated. There is a small right maxillary sinus polyp or mucous retention cyst. The optic globes are intact. The retroseptal orbits are intact. The facial soft tissues are unremarkable. Impression: No acute bony trauma Small right maxillary sinus polyp or mucous retention cyst This agrees with the preliminary interpretation provided overnight by [facility]. The CT scanner at [facility] is accredited by the [employer] and the scans are performed using protocols designed to limit radiation exposure to as low as reasonably achievable to attain images of sufficient resolution adequate for diagnostic evaluation.
[2019-03-20] MEDS ORDERED: Acetaminophen 500mg (ES) tab ORAL ONE ×2 (18:57→19:00)
[2019-03-20 19:03] VITALS: BP 135/77
== END 2019-03-20 19:03 | disposition home or self-care (01) ==
LOC: EMR 18:46
DX: S00.83XA Contusion of other part of head, initial encounter (principal); S09.90XA Unspecified injury of head, initial encounter; Z23 Encounter for immunization; W20.8XXA Other cause of strike by thrown, projected or falling object, initial encounter; Y92.9 Unspecified place or not applicable
CPT/HCPCS: 70450; 70486; 90471; 90715; Z7502; 99284